=== PATIENT | male | born 1945 | race Caucasian/White ===

== ENCOUNTER 2018-01-02 01:51 | Inpatient (IN) ==
[2018-01-02] MEDS ORDERED: *HR* LORazepam 2 MG/ML VIAL ONE (05:21)
[2018-01-02] MEDS ORDERED: Naloxone 0.4 MG/ML INJ IVP PRN (06:21)
[2018-01-02] MEDS ORDERED: Acetaminophen 325 MG TABLET PO PRN (06:21)
[2018-01-02] MEDS ORDERED: Ipratropium/Albuterol Neb 3 ML IH PRN (06:28)
--- NOTE | 2018-01-02 06:34 | Internal Med History&Physical ---
Date of Encounter: 01/02/18 Time of Encounter: 04:40 Internal Medicine - H&P: HPI Chief complaint: COPD exacerbation Admitted From: Home Plans for Post Hospital Care: Home History of present illness: Mr. Connors is a 72 year old male As patient is currently undergoing BiPAP, some information otained from prior ER records at [facility] as to not worsen his condition. Patient initially began having shortness of breath about 2 weeks ago, and was treated by his PCP for COPD and pneumonia. Started on steroids and a z-rosalina. At home he continued to use his inhalers and nebulizers, but also continued to smoke. After being evaluated in the [facility] ER, it was decided to have the patient transferred to [facility] for further management and treatment. Upon arrival patient was doing much better once BiPAP was initiated, and he states that he is very tired. He denies chest pain, abdominal pain, Nausea, vomiting, diarrhea and constipation. He does have a cough that is productive of dark mucus. Is is a pack a day smoker, and not on home oxygen. Upon arrival to the floor he was anxious due to feeling short of breath, but he improved once he was placed on Bipap. Past Med Surg Social Fam HX - Past Medical History Medical history: COPD, GERD, hyperlipidemia, hypertension, other Additional medical history: SCIATICA, UMBILICAL HERNIA, GOUT, SEASONAL ALLERGIES , RLS, HERPES ZOSTER Psychiatric history: no psych history - Social History Smoking Status: Current every day smoker Smokeless Tobacco Status: No Alcohol use: none Drug use: none Internal Medicine - H&P: Meds Albuterol Neb [Proventil Neb] 2.5 mg IH Q6H PRN 01/01/18 [History] Albuterol Sulfate [Ventolin Hfa] 2 each IH Q6H PRN 01/01/18 [History] Aspirin [Adult Aspirin Regimen] 81 mg PO DAILY 01/01/18 [History] Famotidine/Ca Carb/Mag Hydrox [Pepcid Complete Tablet Chew] 1 each PO DAILY [History] Ipratropium/Albuterol Neb [Duoneb] 3 ml IH Q6HR 01/01/18 [History] Lisinopril-HCTZ 10-12.5 [Prinzide 10-12.5] 1 each PO DAILY 01/01/18 [History] Mometasone Furoate [Nasonex] 17 gm NS DAILY 01/01/18 [History] Nebivolol [Bystolic] 5 mg PO DAILY 01/01/18 [History] Sildenafil Citrate [Revatio] 20 mg PO TID 01/01/18 [History] Umeclidinium Brm/Vilanterol Tr [Anoro Ellipta 62.5-25 Mcg INH] 1 each IH DAILY 01/01/18 [History] PredniSONE [Deltasone] 40 mg PO DAILY 01/02/18 [History] 3 Allergy/AdvReac Type Severity Reaction Status Date / Time Penicillins [PCN] Allergy Hives Verified 01/01/18 22:36 All Systems PM: A 10-system review of systems was performed and is negative for pertinent findings except as documented above in the HPI. - Constitutional Vitals: Temp Pulse Resp BP Pulse Ox 97.2 F L 96 22 170/92 98 01/02/18 04:36 01/02/18 04:36 01/02/18 04:36 01/02/18 04:36 01/02/18 04:36 General appearance: Present: mild distress, A&O X 3, pleasant - Head Head exam: Present: normal inspection - Eye Eye exam: Present: EOMI, normal appearance - Respiratory Respiratory exam: Present: decreased breath sounds, respiratory distress, wheezes. Absent: rales - Cardiovascular Cardiovascular exam: Present: RRR. Absent: diastolic murmur, systolic murmur - GI/Abdominal GI/Abdominal exam: Present: normal bowel sounds. Absent: firm, guarding, tenderness - Extremities Exam Extremities exam: Present: warm, radial pulses palpable and symmetrical. Absent : tenderness Additional comments: Patient missing finger on his left hand from injury many years ago. - Neurological Exam Neurological exam: Present: oriented X3, strengths equal and symetr throughout. Absent: facial droop, speech deficit - Skin Skin exam: Present: normal color, warm. Absent: rash Internal Med - H&P Results - Labs CBC & Chem 7: 01/02/18 06:38 - Assessment and plan (1) COPD exacerbation Current Visit: Yes Status: Acute Assessment and plan: Patient presented with COPD exacerbation to [facility]. He was transferred here for further management and to start on BiPAP. Symptoms have been present for 2 weeks, and he was treated outpatient for this, but patient progressively worsened. He is not on oxygen at home, and only has nebulizers and inhalers that have also been unsuccessful at home. Chest x-ray done in the ER showed no focal consolidation or effusion, will start antibiotics anyway for anti-inflammatory properties. Patient does have an elevated white count, however repeat labs show improvement, and patient was started on prednisone prior to his hospitalization. Vital signs are stable, patient afebrile. Continue Bipap, patient saturations improved Duonebs Q4H, with PRN Duonebs for between treatments. Prednisone 40mg daily Azithromycin 500mg daily (2) Acute and chronic respiratory failure with hypoxia Current Visit: Yes Status: Acute Assessment and plan: Secondary to COPD exacerbation, started on BiPAP. Initial Blood gas showed pH of 7.35, pCO2 of 61, pO2 of 87, Bicarb of 34. Consider ABG when on bipap for a few hours. Anticipate improvement of pCO2 after a few hours of bipap. Continue to monitor oxygenation. (3) SOB (shortness of breath) Current Visit: Yes Status: Acute Assessment and plan: Improved on Bipap, Continue to monitor. (4) Leukocytosis Current Visit: Yes Status: Acute Assessment and plan: Likely secondary to prednisone use outpatient rather than infection. Chest x- ray is clear, and no other signs of infection. Continue to monitor Started azithromycin for anti-inflammatory Qualifiers: Qualified Code(s): D72.829 - Elevated white blood cell count, unspecified (5) HTN (hypertension) Current Visit: Yes Status: Acute Assessment and plan: Patient takes blood pressure medications at home, initially he was elevated, likely secondary to anxiety and shortness of breath. Now much better. Continue to monitor restart home meds if needed. Qualifiers: Hypertension type: essential hypertension Qualified Code(s): I10 - Essential (primary) hypertension - Time Spent With Patient Total time spent is greater than 50% in coordination of care (as documented) at patient's floor/unit and/or counseling patient: Greater than 35 minutes
[2018-01-02 06:53] LABS: Hematocrit 46.8 % (37.5-50.1); Hemoglobin 15.9 g/dL (12.9-16.9); Mean Corpuscular Hemoglobin 32.1 pg (28.0-33.3); Mean Corpuscular Volume 94.5 fL (83.0-100.0); Mean Platelet Volume 8.8 fL (9.4-12.4); Platelet Count 280 K/mcL (140-400); Red Blood Count 4.95 M/mcL (4.19-5.50); Red Cell Distribution Width 12.7 % (11.5-14.5)
[2018-01-02 07:09] LABS: BUN/Creatinine Ratio 25 (6-26); Blood Urea Nitrogen 23 mg/dL (8-23); Calcium 9.4 mg/dL (8.6-10.3); Carbon Dioxide 31 mEq/L (23-29); Chloride 93 mEq/L (98-107); Glucose 105 mg/dL (70-105); Osmolality,Calculated 278 (280-300); Potassium 4.4 mEq/L (3.5-5.1); Sodium 132 mEq/L (136-145); eGFR For African Americans > 60 (> 60); eGFR For Non-African Americans > 60 (> 60)
[2018-01-02] MEDS: Azithromycin 500 MG in D5% in Water 250 ML IVPB SCH (07:36)
[2018-01-02] MEDS ORDERED: Ipratropium/Albuterol Neb 3 ML IH SCH (08:00)
[2018-01-02] MEDS ORDERED: Albuterol 2.5 MG/3 ML NEBULIZER IH PRN (08:59)
[2018-01-02] MEDS ORDERED: predniSONE 20 MG TABLET PO SCH (09:00)
[2018-01-02] MEDS: Loratadine 10 MG TABLET PO SCH (09:45)
[2018-01-02] MEDS ORDERED: *HR* LORazepam 2 MG/ML VIAL IVP PRN (10:26)
[2018-01-02] MEDS: Nicotine 21 MG PATCH.TD24 TD SCH (10:30)
[2018-01-02] MEDS: Ipratropium/Albuterol Neb 3 ML IH SCH ×3 (10:33→21:34)
[2018-01-02] MEDS: Acetylcysteine 10% 2 ML INHSOL IH SCH ×3 (10:33→21:35)
[2018-01-02] MEDS ORDERED: *HR* LORazepam 2 MG/ML VIAL IVP SCH (12:00)
[2018-01-02] MEDS ORDERED: Acetylcysteine 10% 2 ML INHSOL IH SCH (12:00)
[2018-01-02] MEDS ORDERED: *HR* LORazepam 2 MG/ML VIAL IVP STA (12:43)
[2018-01-02] MEDS ORDERED: *HR* LORazepam 2 MG/ML VIAL IVP ONE (12:43)
[2018-01-02] MEDS ORDERED: FAMOTIDINE PO SCH (13:00)
[2018-01-02] MEDS ORDERED: MAG HYDROX PO SCH (13:00)
[2018-01-02] MEDS ORDERED: CA CARB PO SCH (13:00)
--- NOTE | 2018-01-02 13:06 | Event Note ---
Date of Encounter: 01/02/18 Time of Encounter: 13:03 S: Patient had no acute events overnight. Notified by nurse that he was becoming more anxious with increasing tachypnea. Was taken off of BiPAP earlier on 6L NC, but had some tachypnea. He was put back on BiPAP. He was given 1 mg IV ativan additionally this AM, which helped. He is now on oxymask. He is having significant productive cough of clear sputum. is in room and we discussed plan of care. He denies fever, chills, chest pain, nausea, vomiting, or abdominal pain. He has no other complaints at this time. O: Gen - Awake, alert, mild distress due to dyspnea HEENT - NCAT, PERRLA, EOMI, hearing grossly intact, oropharynx benign CV - RRR, normal S1 and S2, no M/R/G, no BLE edema Resp - Coarse breath sounds bilaterally on BiPAP, intermittent expiratory wheeze , moderately labored WOB, no rales or rhonchi GI - Soft, NT/ND, no masses, normal bowel sounds, no HSP Skin - Warm, dry, no rashes/lesions/ulcers Psych - Mild anxiety, no depression, normal affect A/P: 1) Acute Exacerbation of COPD - Continue BiPAP PRN; wean to NC and room air as tolerated. Continued duonebs scheduled Q6H with addition of mucomyst and chest PT. Discontinue prednisone and start solumedrol 80 mg IV Q8H; will wean with improvement. Start guaifenesin and claritin for cough. Continue ativan 1 mg IV Q4H PRN for anxiety as this may be contributing to dyspnea. Counselled on smoking cessation; will start nicotine transdermal 21 mg QD and consider chantix at PCP follow up after discharge. 2) Anxiety - Management as per above. May need management by PCP after discharge.
[2018-01-02] MEDS: methylPREDNISolone 125 MG/2 ML VIAL IVP SCH ×2 (13:19→15:14)
[2018-01-02] MEDS: Aspirin Enteric Coated 81 MG Tablet PO SCH (14:17)
[2018-01-02] MEDS: Famotidine 20 MG TABLET PO SCH ×2 (14:18→21:01)
[2018-01-02] MEDS: Fluticasone Propionate Nasal 50 MCG/SPRAY BOTTLE NS SCH (14:18)
[2018-01-02] MEDS: Anoro Ellipta 62.5-2 IH SCH (14:19)
[2018-01-02] MEDS: *HR* Heparin 5,000 UNIT/ML VIAL SQ SCH (17:18)
[2018-01-03] MEDS: methylPREDNISolone 125 MG/2 ML VIAL IVP SCH ×2 (00:16→08:19)
[2018-01-03] MEDS: Ipratropium/Albuterol Neb 3 ML IH SCH ×4 (04:52→22:39)
[2018-01-03] MEDS: Acetylcysteine 10% 2 ML INHSOL IH SCH ×4 (04:52→22:39)
[2018-01-03 05:43] LABS: ABG Base Excess 8 mEq/L (-2 to 3); ABG HCO3 39 mEq/L (21-27); ABG Oxygen Saturation 94 % (95-98); ABG PCO2 79 mmHg (35-45); ABG PO2 82 mmHg (85-104); ABG TCO2 41 mEq/L (20-26)
[2018-01-03] MEDS: *HR* Heparin 5,000 UNIT/ML VIAL SQ SCH ×2 (06:25→17:00)
[2018-01-03] MEDS: Azithromycin 500 MG in D5% in Water 250 ML IVPB SCH (06:25)
[2018-01-03 07:45] LABS: Basophils % 0.1 %; Eosinophils % 0.1 %; Hematocrit 48.7 % (37.5-50.1); Hemoglobin 15.9 g/dL (12.9-16.9); Immature Granulocytes % 0.7 % (0-4); Lymphocytes # 0.6 K/mcL (0.6-4.6); Lymphocytes % 6.3 %; Mean Corpuscular HGB Conc 32.6 g/dL (31.6-35.5); Mean Corpuscular Hemoglobin 31.7 pg (28.0-33.3); Mean Platelet Volume 9.3 fL (9.4-12.4); Monocytes # 0.3 K/mcL (0.0-1.3); Monocytes % 2.6 %; Neutrophils # 8.6 K/mcL (1.6-8.9); Platelet Count 293 K/mcL (140-400); Red Blood Count 5.02 M/mcL (4.19-5.50); Red Cell Distribution Width 12.7 % (11.5-14.5); Segmented Neutrophils % 90.2 %
[2018-01-03 08:03] LABS: BUN/Creatinine Ratio 32 (6-26); Blood Urea Nitrogen 30 mg/dL (8-23); Calcium 9.4 mg/dL (8.6-10.3); Carbon Dioxide 34 mEq/L (23-29); Chloride 90 mEq/L (98-107); Glucose 181 mg/dL (70-105); Osmolality,Calculated 279 (280-300); Potassium 4.6 mEq/L (3.5-5.1); Sodium 129 mEq/L (136-145); eGFR For African Americans > 60 (> 60); eGFR For Non-African Americans > 60 (> 60)
[2018-01-03] MEDS: Nicotine 21 MG PATCH.TD24 TD SCH (08:19)
[2018-01-03] MEDS: Famotidine 20 MG TABLET PO SCH ×2 (08:20→21:06)
[2018-01-03] MEDS: Aspirin Enteric Coated 81 MG Tablet PO SCH (08:20)
[2018-01-03] MEDS: Anoro Ellipta 62.5-2 IH SCH (08:20)
[2018-01-03] MEDS: Loratadine 10 MG TABLET PO SCH (08:20)
[2018-01-03] MEDS: Fluticasone Propionate Nasal 50 MCG/SPRAY BOTTLE NS SCH (08:21)
--- NOTE | 2018-01-03 13:28 | Internal Med Progress Note ---
Date of Encounter: 01/03/18 Time of Encounter: 13:10 - Time Spent With Patient Total time spent is greater than 50% in coordination of care (as documented) at patient's floor/unit and/or counseling patient: - Constitutional Vitals: Temp Pulse Resp BP Pulse Ox 98.5 F 87 18 112/70 97 01/03/18 11:09 01/03/18 11:09 01/03/18 11:09 01/03/18 11:09 01/03/18 11:09 General appearance: Present: mild distress, A&O X 3, pleasant Internal Medicine: Result - Labs CBC & Chem 7: 01/03/18 06:45 01/03/18 06:45 Labs: Short CBC 01/03/18 Range/Units 06:45 WBC 9.6 (4.3-11.1) K/mcL Hgb 15.9 (12.9-16.9) g/dL Hct 48.7 (37.5-50.1) % Plt Count 293 (140-400) K/mcL Neutrophils # 8.6 (1.6-8.9) K/mcL BMP 01/03/18 06:45 Sodium 129 L Potassium 4.6 Chloride 90 L Carbon Dioxide 34 H BUN 30 H Creatinine 0.94 Glucose 181 H Calcium 9.4 - ABG Interpretation ABG results: ABG ABG pH 7.30 pH Units (7.32-7.45) L 01/03/18 05:39 ABG pCO2 79 mmHg (35-45) H* 01/03/18 05:39 ABG pO2 82 mmHg (85-104) L 01/03/18 05:39 ABG O2 Saturation 94 % (95-98) L 01/03/18 05:39 Consult Discharge Plan - Plan Referrals: Lc Arnold, INTERNET CAFE MANAGER [Primary Care Provider] -
[2018-01-03] MEDS: MethylPREDNISolone 40 MG/ML VIAL IVP SCH (17:00)
--- NOTE | 2018-01-03 17:25 | Internal Med Progress Note ---
Date of Encounter: 01/03/18 Time of Encounter: 14:50 - Assessment and plan (1) Acute and chronic respiratory failure with hypoxia Current Visit: Yes Status: Acute Assessment and plan: Slowly improving with treatment of his COPD. Continue aerosols, oxygen and steroids. Anticipate d/c in next 1-2 days. (2) Acute exacerbation of chronic obstructive airways disease Current Visit: No Status: Acute Assessment and plan: Currently slowly improving. Will decrease steroid dose today. Continue aerosols and supportive care. (3) HTN (hypertension) Current Visit: Yes Status: Chronic Assessment and plan: Continue current meds. Qualifiers: Hypertension type: essential hypertension Qualified Code(s): I10 - Essential (primary) hypertension - Time Spent With Patient Total time spent is greater than 50% in coordination of care (as documented) at patient's floor/unit and/or counseling patient: - Subjective Interval history: Mr Connors is currently hospitalized for acute on chronic resp failure and COPD. He is more comfortable now. He remains moderate to high risk due to potential for worsening clinical and respiratory status. Mr Connors says his breathing is improving. He is coughing some. No CP. Is able to move around. No fever or chills. Still on high dose IV steroids. No GI issues. - Constitutional Vitals: Temp Pulse Resp BP Pulse Ox 99.0 F 80 18 108/62 93 01/03/18 15:10 01/03/18 15:10 01/03/18 15:10 01/03/18 15:10 01/03/18 15:10 General appearance: Present: A&O X 3, pleasant - Head Head exam: Present: normocephalic - Eye Eye exam: Present: EOMI, conjuntiva pink - ENT ENT exam: Present: mucous membranes moist - Respiratory Respiratory exam: Present: rhonchi, wheezes - Cardiovascular Cardiovascular exam: Present: RRR. Absent: tachycardia - GI/Abdominal GI/Abdominal exam: Present: soft. Absent: tenderness - Extremities Exam Extremities exam: Present: warm. Absent: tenderness - Neurological Exam Neurological exam: Present: alert, oriented X3 - Skin Skin exam: Present: dry, warm Internal Medicine: Result - Labs CBC & Chem 7: 01/03/18 06:45 01/03/18 06:45 Labs: Short CBC 01/03/18 Range/Units 06:45 WBC 9.6 (4.3-11.1) K/mcL Hgb 15.9 (12.9-16.9) g/dL Hct 48.7 (37.5-50.1) % Plt Count 293 (140-400) K/mcL Neutrophils # 8.6 (1.6-8.9) K/mcL BMP 01/03/18 06:45 Sodium 129 L Potassium 4.6 Chloride 90 L Carbon Dioxide 34 H BUN 30 H Creatinine 0.94 Glucose 181 H Calcium 9.4 - ABG Interpretation ABG results: ABG ABG pH 7.30 pH Units (7.32-7.45) L 01/03/18 05:39 ABG pCO2 79 mmHg (35-45) H* 01/03/18 05:39 ABG pO2 82 mmHg (85-104) L 01/03/18 05:39 ABG O2 Saturation 94 % (95-98) L 01/03/18 05:39 Consult Discharge Plan - Plan Referrals: Lc Arnold, KNITTING SUPERVISOR [Primary Care Provider] -
[2018-01-03] MEDS: *HR* LORazepam 2 MG/ML VIAL IVP PRN (17:48)
[2018-01-04] MEDS: MethylPREDNISolone 40 MG/ML VIAL IVP SCH ×3 (00:19→17:27)
[2018-01-04] MEDS: Ipratropium/Albuterol Neb 3 ML IH SCH ×4 (04:00→22:22)
[2018-01-04] MEDS: Acetylcysteine 10% 2 ML INHSOL IH SCH ×2 (04:00→10:57)
[2018-01-04 06:19] LABS: Hematocrit 46.6 % (37.5-50.1); Hemoglobin 15.7 g/dL (12.9-16.9); Mean Corpuscular HGB Conc 33.7 g/dL (31.6-35.5); Mean Corpuscular Hemoglobin 32.4 pg (28.0-33.3); Mean Corpuscular Volume 96.1 fL (83.0-100.0); Platelet Count 264 K/mcL (140-400); Red Blood Count 4.85 M/mcL (4.19-5.50); Red Cell Distribution Width 12.3 % (11.5-14.5)
[2018-01-04] MEDS: *HR* Heparin 5,000 UNIT/ML VIAL SQ SCH ×2 (06:19→17:27)
[2018-01-04] MEDS: Azithromycin 500 MG in D5% in Water 250 ML IVPB SCH (06:19)
[2018-01-04 06:40] LABS: BUN/Creatinine Ratio 33 (6-26); Blood Urea Nitrogen 30 mg/dL (8-23); Carbon Dioxide 36 mEq/L (23-29); Chloride 92 mEq/L (98-107); Glucose 154 mg/dL (70-105); Magnesium 2.3 mg/dL (1.6-2.6); Osmolality,Calculated 283 (280-300); Potassium 4.9 mEq/L (3.5-5.1); Sodium 132 mEq/L (136-145); eGFR For African Americans > 60 (> 60); eGFR For Non-African Americans > 60 (> 60)
[2018-01-04] MEDS: Nicotine 21 MG PATCH.TD24 TD SCH (08:56)
[2018-01-04] MEDS: Loratadine 10 MG TABLET PO SCH (08:59)
[2018-01-04] MEDS: Aspirin Enteric Coated 81 MG Tablet PO SCH (08:59)
[2018-01-04] MEDS ORDERED: UMECLIDINIUM IH SCH (09:00)
[2018-01-04] MEDS ORDERED: VILANTEROL IH SCH (09:00)
[2018-01-04] MEDS: Famotidine 20 MG TABLET PO SCH ×2 (09:01→20:15)
[2018-01-04] MEDS: Fluticasone Propionate Nasal 50 MCG/SPRAY BOTTLE NS SCH (09:03)
[2018-01-04] MEDS: *HR* LORazepam 2 MG/ML VIAL IVP PRN ×2 (14:57→20:17)
--- NOTE | 2018-01-04 16:23 | Internal Med Progress Note ---
Date of Encounter: 01/04/18 Time of Encounter: 16:21 - Assessment and plan (1) Acute and chronic respiratory failure with hypoxia Current Visit: Yes Status: Acute Assessment and plan: Slowly improving with treatment of his COPD. Continue aerosols, oxygen, and steroids. Wean to room air as tolerated. May need qualification for home O2. If we can wean O2, will consider transition to oral prednisone and discharge home with taper. (2) HTN (hypertension) Current Visit: Yes Status: Chronic Assessment and plan: Continue home medications. Qualifiers: Hypertension type: essential hypertension Qualified Code(s): I10 - Essential (primary) hypertension (3) Acute exacerbation of chronic obstructive airways disease Current Visit: No Status: Acute Assessment and plan: Management as per above. (4) Nicotine dependence Current Visit: Yes Status: Chronic Assessment and plan: Continue nicotine transdermal. Consider chantix as outpatient after over acute exacerbation of COPD. Qualifiers: Nicotine product type: cigarettes Substance use status: unspecified nicotine-induced disorder Qualified Code(s): F17.219 - Nicotine dependence, cigarettes, with unspecified nicotine-induced disorders (5) DVT prophylaxis Current Visit: Yes Status: Acute Assessment and plan: Continue SQ heparin. - Time Spent With Patient Total time spent is greater than 50% in coordination of care (as documented) at patient's floor/unit and/or counseling patient: less than 15 minutes - Subjective Interval history: Patient had no acute events overnight. He has not required BiPAP over last 24 hours. He is currently on 5L NC. He states that he is not quite back to his normal breathing. He denies fever, chills, chest pain, nausea, vomiting, or abdominal pain. He has no complaints at this time. He wants to go home, but is agreeable to staying. We will qualify for home O2 prior to discharge. - Constitutional Vitals: Temp Pulse Resp BP Pulse Ox 98.8 F 89 20 121/74 97 01/04/18 15:57 01/04/18 15:57 01/04/18 15:57 01/04/18 15:57 01/04/18 15:57 General appearance: Present: cooperative, A&O X 3, pleasant, no acute distress, obese, answers questions appropriately - Respiratory Respiratory exam: Absent: accessory muscle use, rales, rhonchi, wheezes Additional comments: Mildly labored WOB, coarse breath sounds bilaterally - Cardiovascular Cardiovascular exam: Present: RRR, +S1, +S2. Absent: diastolic murmur, gallop, rubs, systolic murmur Additional comments: No BLE edema - GI/Abdominal GI/Abdominal exam: Present: normal bowel sounds, soft. Absent: distended, hepatomegaly, mass, splenomegaly, tenderness - Psychiatric Psychiatric exam: Present: normal affect, normal mood. Absent: agitated, anxious, depressed - Skin Skin exam: Present: dry, intact, warm. Absent: cyanosis, rash Internal Medicine: Result - Labs CBC & Chem 7: 01/04/18 05:46 01/04/18 05:46 Labs: Short CBC 01/04/18 Range/Units 05:46 WBC 15.4 H D (4.3-11.1) K/mcL Hgb 15.7 (12.9-16.9) g/dL Hct 46.6 (37.5-50.1) % Plt Count 264 (140-400) K/mcL BMP 01/04/18 05:46 Sodium 132 L Potassium 4.9 Chloride 92 L Carbon Dioxide 36 H BUN 30 H Creatinine 0.90 Glucose 154 H Calcium 9.0 - ABG Interpretation ABG results: ABG ABG pH 7.30 pH Units (7.32-7.45) L 01/03/18 05:39 ABG pCO2 79 mmHg (35-45) H* 01/03/18 05:39 ABG pO2 82 mmHg (85-104) L 01/03/18 05:39 ABG O2 Saturation 94 % (95-98) L 01/03/18 05:39 Consult Discharge Plan - Plan Referrals: Lc Arnold, ELECTRIC TRUCKER [Primary Care Provider] - (Per [facility] office patient will need to make his own follow up Appointment)
[2018-01-04] MEDS: UMECLIDINIUM IH SCH (17:17)
[2018-01-04] MEDS: VILANTEROL IH SCH (17:17)
[2018-01-04] MEDS: Sildenafil Citrate 20 MG TABLET PO SCH (20:16)
[2018-01-05] MEDS: Ipratropium/Albuterol Neb 3 ML IH SCH ×4 (02:57→21:48)
[2018-01-05 04:16] LABS: ABG Base Excess 16 mEq/L (-2 to 3); ABG HCO3 47 mEq/L (21-27); ABG Oxygen Saturation 93 % (95-98); ABG PCO2 88 mmHg (35-45); ABG PH 7.34 pH Units (7.32-7.45); ABG PO2 76 mmHg (85-104); ABG TCO2 50 mEq/L (20-26)
[2018-01-05 04:21] LABS: Basophils % 0.1 %; Hemoglobin 16.2 g/dL (12.9-16.9); Immature Granulocytes % 0.7 % (0-4); Lymphocytes % 5.3 %; Mean Corpuscular HGB Conc 33.8 g/dL (31.6-35.5); Mean Corpuscular Hemoglobin 33.3 pg (28.0-33.3); Mean Corpuscular Volume 98.6 fL (83.0-100.0); Mean Platelet Volume 9.3 fL (9.4-12.4); Monocytes % 5.4 %; Platelet Count 285 K/mcL (140-400); Red Blood Count 4.87 M/mcL (4.19-5.50); Red Cell Distribution Width 12.4 % (11.5-14.5); Segmented Neutrophils % 88.5 %
[2018-01-05] MEDS: MethylPREDNISolone 40 MG/ML VIAL IVP SCH ×4 (04:21→23:06)
[2018-01-05] MEDS: *HR* LORazepam 2 MG/ML VIAL IVP PRN ×3 (04:22→20:31)
[2018-01-05] MEDS: *HR* Heparin 5,000 UNIT/ML VIAL SQ SCH ×2 (04:35→17:47)
[2018-01-05 04:37] LABS: BUN/Creatinine Ratio 35 (6-26); Blood Urea Nitrogen 27 mg/dL (8-23); Calcium 9.1 mg/dL (8.6-10.3); Carbon Dioxide 38 mEq/L (23-29); Chloride 92 mEq/L (98-107); Glucose 135 mg/dL (70-105); Osmolality,Calculated 283 (280-300); Potassium 4.7 mEq/L (3.5-5.1); Sodium 133 mEq/L (136-145); eGFR For African Americans > 60 (> 60); eGFR For Non-African Americans > 60 (> 60)
[2018-01-05] MEDS: Loratadine 10 MG TABLET PO SCH (08:22)
[2018-01-05] MEDS: Sildenafil Citrate 20 MG TABLET PO SCH ×3 (08:22→20:31)
[2018-01-05] MEDS: Famotidine 20 MG TABLET PO SCH ×2 (08:22→20:31)
[2018-01-05] MEDS: Azithromycin 250 MG TABLET PO SCH (08:22)
[2018-01-05] MEDS: Aspirin Enteric Coated 81 MG Tablet PO SCH (08:22)
[2018-01-05] MEDS: Nicotine 21 MG PATCH.TD24 TD SCH (08:23)
[2018-01-05] MEDS: Fluticasone Propionate Nasal 50 MCG/SPRAY BOTTLE NS SCH (08:23)
[2018-01-05] MEDS ORDERED: UMECLIDINIUM IH SCH (10:00)
[2018-01-05] MEDS ORDERED: VILANTEROL IH SCH (10:00)
--- NOTE | 2018-01-05 10:05 | Internal Med Progress Note ---
Date of Encounter: 01/05/18 Time of Encounter: 11:00 - Assessment and plan (1) Acute and chronic respiratory failure with hypoxia Current Visit: Yes Status: Acute Assessment and plan: Patient not moving a lot of air to auscultation on exam CTPA negative for pulmonary embolism or any for treatment; emphysematous changes were present Will continue IV Solu-Medrol and IV azithromycin (2) Acute exacerbation of chronic obstructive airways disease Current Visit: No Status: Acute Assessment and plan: Management for COPD exacerbation as above (3) HTN (hypertension) Current Visit: Yes Status: Chronic Assessment and plan: Stable; continue lisinopril-hydrochlorothiazide Qualifiers: Hypertension type: essential hypertension Qualified Code(s): I10 - Essential (primary) hypertension (4) Nicotine dependence Current Visit: Yes Status: Chronic Assessment and plan: Continue nicotine transdermal. Qualifiers: Nicotine product type: cigarettes Substance use status: unspecified nicotine-induced disorder Qualified Code(s): F17.219 - Nicotine dependence, cigarettes, with unspecified nicotine-induced disorders (5) DVT prophylaxis Current Visit: Yes Status: Acute Assessment and plan: Continue SQ heparin. - Time Spent With Patient Total time spent is greater than 50% in coordination of care (as documented) at patient's floor/unit and/or counseling patient: - Subjective Interval history: Patient who was admitted for acute hypoxic respiratory failure with COPD exacerbation still requiring higher amounts of oxygen supplementation this morning - Constitutional Vitals: Temp Pulse Resp BP Pulse Ox 98.4 F 78 13 117/77 96 01/05/18 03:31 01/05/18 06:58 01/05/18 07:22 01/05/18 06:58 01/05/18 07:22 General appearance: Present: cooperative, A&O X 3, pleasant, no acute distress, obese, answers questions appropriately - Respiratory Respiratory exam: Absent: accessory muscle use, respiratory distress, rhonchi, wheezes, tachypnea - Expanded Respiratory Exam Location: decreased breath sounds: Left, Right, Upper, Lower (Patient not moving a whole lot air on auscultation) - Cardiovascular Cardiovascular exam: Present: RRR, +S1, +S2. Absent: diastolic murmur, gallop, rubs, systolic murmur Internal Medicine: Result - Labs CBC & Chem 7: 01/05/18 03:42 01/05/18 03:42 Labs: Short CBC 01/05/18 Range/Units 03:42 WBC 18.0 H (4.3-11.1) K/mcL Hgb 16.2 (12.9-16.9) g/dL Hct 48.0 (37.5-50.1) % Plt Count 285 (140-400) K/mcL Neutrophils # 16.0 H (1.6-8.9) K/mcL BMP 01/05/18 03:42 Sodium 133 L Potassium 4.7 Chloride 92 L Carbon Dioxide 38 H BUN 27 H Creatinine 0.78 Glucose 135 H Calcium 9.1 - ABG Interpretation ABG results: ABG ABG pH 7.34 pH Units (7.32-7.45) 01/05/18 04:07 ABG pCO2 88 mmHg (35-45) H* 01/05/18 04:07 ABG pO2 76 mmHg (85-104) L 01/05/18 04:07 ABG O2 Saturation 93 % (95-98) L 01/05/18 04:07 Consult Discharge Plan - Plan Referrals: Lc Arnold, EXTENSION EDUCATOR [Primary Care Provider] - (Per [facility] office patient will need to make his own follow up Appointment)
[2018-01-05 10:28] LABS: ABG Base Excess 12 mEq/L (-2 to 3); ABG HCO3 42 mEq/L (21-27); ABG Oxygen Saturation 95 % (95-98); ABG PCO2 73 mmHg (35-45); ABG PH 7.36 pH Units (7.32-7.45); ABG PO2 81 mmHg (85-104); ABG TCO2 44 mEq/L (20-26)
[2018-01-05] MEDS ORDERED: Isovue-370 500 ML INFUS..BTL IV ONE (12:42)
[2018-01-05] MEDS: VILANTEROL IH SCH (15:50)
[2018-01-05] MEDS: UMECLIDINIUM IH SCH (15:50)
[2018-01-06] MEDS: Ipratropium/Albuterol Neb 3 ML IH SCH ×4 (03:39→21:49)
[2018-01-06] MEDS: *HR* Heparin 5,000 UNIT/ML VIAL SQ SCH ×2 (05:39→17:14)
[2018-01-06] MEDS: Nicotine 21 MG PATCH.TD24 TD SCH (09:24)
[2018-01-06] MEDS: MethylPREDNISolone 40 MG/ML VIAL IVP SCH ×2 (09:25→17:13)
[2018-01-06] MEDS: Aspirin Enteric Coated 81 MG Tablet PO SCH (09:25)
[2018-01-06] MEDS: Famotidine 20 MG TABLET PO SCH ×2 (09:25→20:12)
[2018-01-06] MEDS: Sildenafil Citrate 20 MG TABLET PO SCH ×3 (09:25→20:12)
[2018-01-06] MEDS: Loratadine 10 MG TABLET PO SCH (09:26)
[2018-01-06] MEDS: Azithromycin 250 MG TABLET PO SCH (09:26)
[2018-01-06] MEDS: Fluticasone Propionate Nasal 50 MCG/SPRAY BOTTLE NS SCH (09:26)
[2018-01-06 10:15] LABS: Basophils % 0.2 %; Hematocrit 50.2 % (37.5-50.1); Hemoglobin 16.9 g/dL (12.9-16.9); Immature Granulocytes % 1.4 % (0-4); Lymphocytes # 0.8 K/mcL (0.6-4.6); Mean Corpuscular HGB Conc 33.7 g/dL (31.6-35.5); Mean Corpuscular Hemoglobin 32.9 pg (28.0-33.3); Mean Corpuscular Volume 97.7 fL (83.0-100.0); Mean Platelet Volume 9.1 fL (9.4-12.4); Monocytes # 0.5 K/mcL (0.0-1.3); Monocytes % 3.1 %; Neutrophils # 14.6 K/mcL (1.6-8.9); Platelet Count 285 K/mcL (140-400); Red Blood Count 5.14 M/mcL (4.19-5.50); Red Cell Distribution Width 12.3 % (11.5-14.5); Segmented Neutrophils % 90.3 %
[2018-01-06 10:33] LABS: BUN/Creatinine Ratio 33 (6-26); Blood Urea Nitrogen 27 mg/dL (8-23); Calcium 9.5 mg/dL (8.6-10.3); Carbon Dioxide 38 mEq/L (23-29); Chloride 92 mEq/L (98-107); Glucose 217 mg/dL (70-105); Osmolality,Calculated 292 (280-300); Potassium 4.1 mEq/L (3.5-5.1); Sodium 135 mEq/L (136-145); eGFR For African Americans > 60 (> 60); eGFR For Non-African Americans > 60 (> 60)
[2018-01-06] MEDS: VILANTEROL IH SCH (15:40)
[2018-01-06] MEDS: UMECLIDINIUM IH SCH (15:40)
--- NOTE | 2018-01-06 17:39 | Internal Med Progress Note ---
Date of Encounter: 01/06/18 Time of Encounter: 11:00 - Assessment and plan (1) Acute and chronic respiratory failure with hypoxia Current Visit: Yes Status: Acute Assessment and plan: Patient requiring less amounts of oxygen supplementation today CTPA negative for pulmonary embolism; emphysematous changes were present Transition patient from IV Solu-Medrol to oral prednisone (2) Acute exacerbation of chronic obstructive airways disease Current Visit: No Status: Acute Assessment and plan: Patient still requiring supplemental oxygenation and will likely need to go home on continuous O2 Transition patient from IV Solu-Medrol to oral prednisone Dissipated discharge on 01/07/18 when home O2 set up (3) HTN (hypertension) Current Visit: Yes Status: Chronic Assessment and plan: Stable; continue lisinopril-hydrochlorothiazide Qualifiers: Hypertension type: essential hypertension Qualified Code(s): I10 - Essential (primary) hypertension (4) Nicotine dependence Current Visit: Yes Status: Chronic Assessment and plan: Continue nicotine transdermal. Qualifiers: Nicotine product type: cigarettes Substance use status: unspecified nicotine-induced disorder Qualified Code(s): F17.219 - Nicotine dependence, cigarettes, with unspecified nicotine-induced disorders (5) DVT prophylaxis Current Visit: Yes Status: Acute Assessment and plan: Continue SQ heparin. - Time Spent With Patient Total time spent is greater than 50% in coordination of care (as documented) at patient's floor/unit and/or counseling patient: - Subjective Interval history: Patient who was admitted for acute hypoxic respiratory failure with COPD exacerbation now requiring lower amounts of O2 supplementation. CTPA yesterday negative for PE but did show emphysematous changes - Constitutional Vitals: Temp Pulse Resp BP Pulse Ox 98.9 F 93 20 134/82 90 01/06/18 16:11 01/06/18 17:33 01/06/18 17:29 01/06/18 16:11 01/06/18 17:29 General appearance: Present: cooperative, A&O X 3, pleasant, no acute distress, obese, answers questions appropriately - Respiratory Respiratory exam: Present: wheezes. Absent: respiratory distress, rhonchi - Cardiovascular Cardiovascular exam: Present: RRR, +S1, +S2. Absent: diastolic murmur, gallop, rubs, systolic murmur Internal Medicine: Result - Labs CBC & Chem 7: 01/06/18 09:53 01/06/18 09:53 Labs: Short CBC 01/06/18 Range/Units 09:53 WBC 16.2 H (4.3-11.1) K/mcL Hgb 16.9 (12.9-16.9) g/dL Hct 50.2 H (37.5-50.1) % Plt Count 285 (140-400) K/mcL Neutrophils # 14.6 H (1.6-8.9) K/mcL BMP 01/06/18 09:53 Sodium 135 L Potassium 4.1 Chloride 92 L Carbon Dioxide 38 H BUN 27 H Creatinine 0.83 Glucose 217 H Calcium 9.5 - ABG Interpretation ABG results: ABG ABG pH 7.36 pH Units (7.32-7.45) 01/05/18 10:23 ABG pCO2 73 mmHg (35-45) H* 01/05/18 10:23 ABG pO2 81 mmHg (85-104) L 01/05/18 10:23 ABG O2 Saturation 95 % (95-98) 01/05/18 10:23 Consult Discharge Plan - Plan Referrals: Lc Arnold, PRODUCT DESIGN MANAGER [Primary Care Provider] - (Per [facility] office patient will need to make his own follow up Appointment)
[2018-01-06] MEDS: *HR* LORazepam 2 MG/ML VIAL IVP PRN (21:37)
[2018-01-07] MEDS: Ipratropium/Albuterol Neb 3 ML IH SCH ×2 (04:34→10:43)
[2018-01-07] MEDS: *HR* Heparin 5,000 UNIT/ML VIAL SQ SCH (05:24)
[2018-01-07] MEDS: Sildenafil Citrate 20 MG TABLET PO SCH (08:51)
[2018-01-07] MEDS: Famotidine 20 MG TABLET PO SCH (08:51)
[2018-01-07] MEDS: Loratadine 10 MG TABLET PO SCH (08:52)
[2018-01-07] MEDS: Nicotine 21 MG PATCH.TD24 TD SCH (08:52)
[2018-01-07] MEDS: Aspirin Enteric Coated 81 MG Tablet PO SCH (08:52)
[2018-01-07] MEDS: Fluticasone Propionate Nasal 50 MCG/SPRAY BOTTLE NS SCH (08:53)
[2018-01-07] MEDS ORDERED: predniSONE 20 MG TABLET PO SCH (09:00)
[2018-01-07] MEDS: UMECLIDINIUM IH SCH (10:04)
[2018-01-07] MEDS: VILANTEROL IH SCH (10:04)
[2018-01-07 11:14] VITALS: BP 132/89
--- NOTE | 2018-01-07 11:56 | Discharge Summary ---
- NOTES TO OUTPATIENT PROVIDER Notes to Outpatient Provider: Patient to follow-up with pulmonology for management of acute hypoxic respiratory failure with COPD Date of Encounter: 01/07/18 Time of Encounter: 11:00 - Discharge Diagnosis (1) Acute and chronic respiratory failure with hypoxia Priority: Primary Status: Acute (2) Acute exacerbation of chronic obstructive airways disease Priority: Primary Status: Acute (3) HTN (hypertension) Priority: Secondary Status: Chronic Qualifiers: Hypertension type: essential hypertension Qualified Code(s): I10 - Essential (primary) hypertension (4) Nicotine dependence Priority: Secondary Status: Chronic Qualifiers: Nicotine product type: cigarettes Substance use status: unspecified nicotine-induced disorder Qualified Code(s): F17.219 - Nicotine dependence, cigarettes, with unspecified nicotine-induced disorders Hospital course: Patient is a 72-year-old male with past medical history significant for hypertension, hyperlipidemia and COPD who presented to the ER from [place] on 01/02/18 due to shortness of breath. Patient reported that his symptoms of shortness of breath started approximately 2 weeks prior to admission he was treated by his primary care provider for COPD and pneumonia with Z-David and oral steroids. She decided to go to [facility] ER for further evaluation after no improvement in symptoms. She was then subsequently transferred to [facility] for further management and treatment. During patients hospital stay he was treated for acute hypoxic respiratory failure secondary to COPD exacerbation and was treated dual nebs, IV antibiotics and IV steroids. Patient was not able to be weaned off supplemental oxygenation and will be discharged to a 5 day course of oral prednisone; patient will continue 4-5 L of nasal cannula to keep O2 saturations between 88 and 92%. He will also need to follow-up with pulmonology for pulmonary function tests and continued management of hypoxic respiratory failure with COPD. - Time Spent with Patient Total time spent providing and/or coordinating discharge services: - Discharge Medications Prescriptions: predniSONE [PredniSONE] 40 mg PO DAILY #10 tablet Home Medications: Albuterol Neb [Proventil Neb] 2.5 mg IH Q6H PRN 01/01/18 [History] Albuterol Sulfate [Ventolin Hfa] 2 each IH Q6H PRN 01/01/18 [History] Aspirin [Adult Aspirin Regimen] 81 mg PO DAILY 01/01/18 [History] Famotidine/Ca Carb/Mag Hydrox [Pepcid Complete Tablet Chew] 1 each PO DAILY [History] Ipratropium/Albuterol Neb [Duoneb] 3 ml IH Q6HR 01/01/18 [History] Lisinopril-HCTZ 10-12.5 [Prinzide 10-12.5] 1 each PO DAILY 01/01/18 [History] Mometasone Furoate [Nasonex] 17 gm NS DAILY 01/01/18 [History] Nebivolol [Bystolic] 5 mg PO DAILY 01/01/18 [History] Sildenafil Citrate [Revatio] 20 mg PO TID 01/01/18 [History] Umeclidinium Brm/Vilanterol Tr [Anoro Ellipta 62.5-25 Mcg INH] 1 puff IH DAILY 01/01/18 [History] predniSONE [PredniSONE] 40 mg PO DAILY #10 tablet 01/07/18 [Rx] Allergies/Adverse Reactions: 3 Allergy/AdvReac Type Severity Reaction Status Date / Time Penicillins [PCN] Allergy Hives Verified 01/01/18 22:36 Date of admission: 01/02/18 10:32 Primary care physician: Lc Arnold CNP Consults: 01/02/18 09:00 Consult to Respiratory Therapy [CONS] Stat Reason for Consult: COPD Exacerbation, Acute Respiratory Failure Call Completed: No 01/02/18 09:05 Consult to Case Management [CONS] Routine Comment: Discharge Planning, Home BiPAP and O2? Consult to Tube Lancer [CONS] Routine Reason for SW Consult: Discharge Planning, Home BiPAP and O2? 01/04/18 08:55 Consult to Nurse Navigator [CONS] Routine Comment: - Constitutional Vitals: Temp Pulse Resp BP Pulse Ox 99.5 F 87 20 132/89 91 01/07/18 11:12 01/07/18 11:52 01/07/18 11:12 01/07/18 11:12 01/07/18 11:12 General appearance: Present: cooperative, A&O X 3, pleasant, no acute distress, obese, answers questions appropriately - Respiratory Respiratory exam: Present: CTAB. Absent: accessory muscle use, rales, rhonchi, wheezes - Patient Status Disposition: Home, Self-Care Condition: Fair - Discharge Instructions Instructions: Acute Respiratory Distress Syndrome (DC), Chronic Obstructive Pulmonary Disease (DC), Pneumonia (DC) Follow Up With: Ashish Howard MD [Partnered Physician] - 01/14/18 1:45 pm Lc Arnold CNP [Primary Care Provider] - (Per [facility] office patient will need to make his own follow up Appointment)
== END 2018-01-07 14:52 | disposition home or self-care (01) | DRG 190 ==
LOC: INTOOBSV 05:02 → 2NNU 05:02 → SUATTDRO 10:32
PROVIDERS: ADMIT Internal Medicine Nephrology; ATTEND Hospitalist

== ENCOUNTER 2019-04-20 16:06 | Inpatient (IN) ==
[2019-04-20] MEDS ORDERED: 0.9 % Sodium Chloride 1,000 ML IVC ONE (16:37)
[2019-04-20] MEDS ORDERED: methylPREDNISolone 125 MG/2 ML VIAL IVP ONE (16:37)
[2019-04-20] MEDS ORDERED: Isovue-370 500 ML BOTTLE IVP ONE (16:37)
[2019-04-20] MEDS ORDERED: Ipratropium/Albuterol Neb 3 ML IH ONE (16:42)
[2019-04-20] MEDS ORDERED: *HR* FentaNYL (PF) 100 MCG/2 ML VIAL IVP ONE (16:44)
[2019-04-20] MEDS ORDERED: cefTRIAXone 2,000 MG in 0.9 % Sodium Chloride Mini Bag 100 ML IVPB ONE (16:49)
[2019-04-20 16:56] LABS: Basophils % 0.2 %; Eosinophils # 0.1 K/mcL (0.0-0.6); Eosinophils % 0.5 %; Hematocrit 46.6 % (37.5-50.1); Immature Granulocytes % 0.3 % (0-4); Lymphocytes # 1.3 K/mcL (0.6-4.6); Lymphocytes % 13.7 %; Mean Corpuscular HGB Conc 34.3 g/dL (31.6-35.5); Mean Corpuscular Hemoglobin 32.9 pg (28.0-33.3); Mean Corpuscular Volume 95.9 fL (83.0-100.0); Mean Platelet Volume 8.9 fL (9.4-12.4); Monocytes # 0.8 K/mcL (0.0-1.3); Monocytes % 7.9 %; Neutrophils # 7.4 K/mcL (1.6-8.9); Platelet Count 286 K/mcL (140-400); Red Blood Count 4.86 M/mcL (4.19-5.50); Red Cell Distribution Width 12.7 % (11.5-14.5); Segmented Neutrophils % 77.4 %; White Blood Count 9.6 K/mcL (4.3-11.1)
[2019-04-20] MEDS ORDERED: levoFLOXacin 750 MG/150 ML 750 MG/150 ML BAG IVPB ONE (16:57)
[2019-04-20 17:14] LABS: BUN/Creatinine Ratio 16 (6-26); Blood Urea Nitrogen 14 mg/dL (8-23); Calcium 9.3 mg/dL (8.6-10.3); Carbon Dioxide 30 mEq/L (23-29); Chloride 96 mEq/L (98-107); Glucose 94 mg/dL (70-105); Osmolality,Calculated 274 (280-300); Potassium 4.1 mEq/L (3.5-5.1); Sodium 132 mEq/L (136-145); eGFR For African Americans > 60 (> 60); eGFR For Non-African Americans > 60 (> 60)
[2019-04-20] MEDS ORDERED: Acyclovir 500 MG in D5% in Water 100 ML IVPB ONE (17:20)
[2019-04-20] MEDS ORDERED: Naloxone 0.4 MG/ML INJ IVP PRN (22:22)
[2019-04-20] MEDS ORDERED: 0.9 % Sodium Chloride 1,000 ML IVC SCH (22:30)
[2019-04-20] MEDS: Nicotine 14 MG PATCH.TD24 TD SCH (23:20)
[2019-04-21] MEDS ORDERED: Melatonin 3 MG TABLET PO PRN (01:52)
[2019-04-21 02:32] LABS: Basophils % 0.1 %; Hematocrit 44.7 % (37.5-50.1); Hemoglobin 15.5 g/dL (12.9-16.9); Immature Granulocytes % 0.5 % (0-4); Lymphocytes # 0.5 K/mcL (0.6-4.6); Lymphocytes % 6.6 %; Mean Corpuscular HGB Conc 34.7 g/dL (31.6-35.5); Mean Corpuscular Hemoglobin 33.2 pg (28.0-33.3); Mean Corpuscular Volume 95.7 fL (83.0-100.0); Mean Platelet Volume 8.8 fL (9.4-12.4); Monocytes # 0.1 K/mcL (0.0-1.3); Monocytes % 0.7 %; Neutrophils # 7.5 K/mcL (1.6-8.9); Platelet Count 259 K/mcL (140-400); Red Blood Count 4.67 M/mcL (4.19-5.50); Red Cell Distribution Width 12.7 % (11.5-14.5); Segmented Neutrophils % 92.1 %; White Blood Count 8.2 K/mcL (4.3-11.1)
[2019-04-21 02:43] LABS: INR 1.1; Prothrombin Time 12.9 Seconds (9.4-12.1)
[2019-04-21 02:51] LABS: Alanine Aminotransferase 13 Units/L (7-52); Albumin/Globulin Ratio 1.8 (1.1-2.2); Alkaline Phosphatase 40 Units/L (34-104); Aspartate Amino Transferase 14 Units/L (13-39); BUN/Creatinine Ratio 19 (6-26); Bilirubin,Total 0.6 mg/dL (0.3-1.0); Blood Urea Nitrogen 14 mg/dL (8-23); Calcium 8.7 mg/dL (8.6-10.3); Carbon Dioxide 24 mEq/L (23-29); Chloride 98 mEq/L (98-107); Globulin 2.2 g/dL (2.4-3.5); Glucose 133 mg/dL (70-105); Magnesium 1.7 mg/dL (1.6-2.6); Osmolality,Calculated 270 (280-300); Phosphorous 2.6 mg/dL (2.7-4.5); Potassium 4.4 mEq/L (3.5-5.1); Sodium 129 mEq/L (136-145); Total Protein 6.2 g/dL (6.4-8.9); eGFR For African Americans > 60 (> 60); eGFR For Non-African Americans > 60 (> 60)
[2019-04-21] MEDS: *HR* Heparin 5,000 UNIT/ML VIAL SQ SCH ×4 (05:16→21:30)
[2019-04-21] MEDS: Nicotine 14 MG PATCH.TD24 TD SCH (08:44)
[2019-04-21] MEDS ORDERED: MethylPREDNISolone 40 MG/ML VIAL IVP SCH (09:00)
[2019-04-21] MEDS ORDERED: 0.9 % Sodium Chloride 1,000 ML IVC SCH (09:00)
[2019-04-21] MEDS: Ipratropium/Albuterol Neb 3 ML IH PRN ×2 (09:01→21:53)
[2019-04-21] MEDS ORDERED: *HR* Promethazine 25 MG/ML VIAL IVP PRN (10:18)
[2019-04-21] MEDS: valACYclovir 500 MG TABLET PO SCH ×3 (10:50→21:12)
[2019-04-21] MEDS: (Fluticasone/Umeclidin/Vilanter [Trelegy Ellipta 100- IH SCH (10:55)
[2019-04-21] MEDS: Artificial Tears SOLN 15 ML BOTTLE RIGHT EYE SCH ×3 (15:19→21:13)
[2019-04-21] MEDS ORDERED: Cefepime HCl 2,000 MG in 0.9 % Sodium Chloride Mini Bag 100 ML IVPB ONE (16:47)
[2019-04-21] MEDS ORDERED: MINERAL OIL OP SCH (21:00)
[2019-04-21] MEDS ORDERED: PETROLATUM WHITE OP SCH (21:00)
[2019-04-21] MEDS ORDERED: Lacri-Lube 3.5 GM TUBE RIGHT EYE SCH (21:00)
[2019-04-21] MEDS: Ciprofloxacin/Dex *EAR* Susp 7.5 ML BOTTLE RIGHT EAR SCH (21:13)
[2019-04-22 01:20] LABS: Hematocrit 43.1 % (37.5-50.1); Mean Corpuscular HGB Conc 34.8 g/dL (31.6-35.5); Mean Corpuscular Hemoglobin 32.9 pg (28.0-33.3); Mean Corpuscular Volume 94.5 fL (83.0-100.0); Mean Platelet Volume 9.5 fL (9.4-12.4); Platelet Count 288 K/mcL (140-400); Red Blood Count 4.56 M/mcL (4.19-5.50); Red Cell Distribution Width 13.1 % (11.5-14.5)
[2019-04-22 01:24] LABS: BUN/Creatinine Ratio 24 (6-26); Blood Urea Nitrogen 24 mg/dL (8-23); Calcium 8.7 mg/dL (8.6-10.3); Carbon Dioxide 27 mEq/L (23-29); Chloride 100 mEq/L (98-107); Glucose 124 mg/dL (70-105); Osmolality,Calculated 281 (280-300); Potassium 4.5 mEq/L (3.5-5.1); Sodium 133 mEq/L (136-145); eGFR For African Americans > 60 (> 60); eGFR For Non-African Americans > 60 (> 60)
[2019-04-22] MEDS: Ipratropium/Albuterol Neb 3 ML IH PRN ×2 (04:44→10:28)
[2019-04-22] MEDS: *HR* Heparin 5,000 UNIT/ML VIAL SQ SCH (05:28)
[2019-04-22] MEDS ORDERED: Famotidine 20 MG TABLET PO SCH (07:30)
[2019-04-22] MEDS ORDERED: Aspirin Enteric Coated 81 MG Tablet PO SCH (09:00)
[2019-04-22] MEDS ORDERED: methylPREDNISolone 125 MG/2 ML VIAL IVP SCH (09:00)
[2019-04-22] MEDS: valACYclovir 500 MG TABLET PO SCH (10:16)
[2019-04-22] MEDS: Artificial Tears SOLN 15 ML BOTTLE RIGHT EYE SCH (10:17)
[2019-04-22] MEDS: Ciprofloxacin/Dex *EAR* Susp 7.5 ML BOTTLE RIGHT EAR SCH (10:18)
[2019-04-22] MEDS: (Fluticasone/Umeclidin/Vilanter [Trelegy Ellipta 100- IH SCH (10:20)
[2019-04-22 11:31] VITALS: BP 137/76
== END 2019-04-22 14:45 | disposition home or self-care (01) | DRG 155 ==
LOC: 3ANU 16:06 → EMEROOARM 16:06 → 3ANU 20:45 → SUATTDRO 22:22
PROVIDERS: ADMIT Internal Medicine; ATTEND Internal Medicine